=== PATIENT | female | born 1970 | race Caucasian/White ===

== ENCOUNTER 2024-02-10 21:01 | Emergency (ER) | payer MEDICARE, MEDICAID ==
[~2024-02-10] VITALS: Ht 170.2 cm; Wt 85.5 kg
[2024-02-10 21:21] VITALS: BP 163/77; PULSE 91; RESP 16; O2SAT 94
[2024-02-10] MEDS ORDERED: CEPH500C PO (23:21)
== END 2024-02-11 01:27 | disposition home or self-care (01) ==
LOC: ER 21:01
DX: L02.213 Cutaneous abscess of chest wall (principal); Z95.1 Presence of aortocoronary bypass graft; I12.0 Hypertensive chronic kidney disease with stage 5 chronic kidney disease or end stage renal disease; E11.22 Type 2 diabetes mellitus with diabetic chronic kidney disease; N18.6 End stage renal disease; T82.7XXA Infection and inflammatory reaction due to other cardiac and vascular devices, implants and grafts, initial encounter

== ENCOUNTER 2024-03-30 12:31 | Emergency (ER) | payer MEDICARE, MEDICAID ==
[~2024-03-30] VITALS: Ht 170.2 cm; Wt 88.5 kg
[~2024-03-30 12:31] MED LIST: CEPH500C PO
[2024-03-30] MEDS: MAALOX PLUS or MAALOX 30 ML PO ONE (14:37)
[2024-03-30] MEDS: LIDOCAINE VISCOUS 2% 15ML UD PO ONE (14:38)
[2024-03-30] MEDS: DONNATAL 5ml ORAL Elix (BELLADONNA ALK-PHENOBARB) PO ONE (14:41)
[2024-03-30 14:42] VITALS: BP 128/55; PULSE 73; RESP 18; TEMP 97.8; O2SAT 95
[2024-03-30] MEDS ORDERED: LIDO2SOL26 MT (15:10)
[2024-03-30] MEDS ORDERED: PANT40TA2 PO (15:10)
== END 2024-03-30 15:24 | disposition home or self-care (01) ==
LOC: ER 12:31
DX: R10.13 Epigastric pain (principal); I12.0 Hypertensive chronic kidney disease with stage 5 chronic kidney disease or end stage renal disease; E11.22 Type 2 diabetes mellitus with diabetic chronic kidney disease; N18.6 End stage renal disease; Z98.890 Other specified postprocedural states; Z79.899 Other long term (current) drug therapy

== ENCOUNTER 2024-04-01 00:45 | Emergency (ER) | payer MEDICARE, MEDICAID ==
[~2024-04-01] VITALS: Ht 170.2 cm; Wt 87.9 kg
[~2024-04-01 00:45] MED LIST changes: +LIDO2SOL26 MT; +PANT40TA2 PO
[2024-04-01 04:06] LABS: Basophils # (auto) 0 10 ^3/uL (0-0.2); Basophils % (auto) 0.2 % (0.0-2.0); Eosinophils # (auto) 0.1 10 ^3/uL (0-0.8); Eosinophils % (auto) 1.3 % (0.0-7.0); Hematocrit 36.5 % (36.0-46.0); Hemoglobin 12.1 g/dL (12.2-16.2); Lymphocytes # (auto) 0.9 10 ^3/uL (0.4-5.4); Lymphocytes % (auto) 8.8 % (10.0-50.0); Mean Corpuscular Hgb Conc. 33.1 g/dL (32.0-36.0); Mean Corpuscular Volume 84.5 fL (80.0-100.0); Monocytes # (auto) 0.5 10 ^3/uL (0-1.3); Monocytes % (auto) 4.9 % (0.0-12.0); Neutrophils # (auto) 8.2 10 ^3/uL (1.6-8.6); Neutrophils % (auto) 84.8 % (37.0-80.0); Nucleated Red Blood Cells % 0.1 %; Red Blood Cells 4.31 10^6/uL (4.0-5.20); Red Cell Distribution Width 14.2 % (11.8-14.3); White Blood Cell 9.7 10^3/uL (4.4-10.8)
[2024-04-01 04:22] LABS: Alanine Aminotransferase 19 U/L (7-40); Albumin 4.5 g/dL (3.2-4.8); Alkaline Phosphatase 174 U/L (46-116); Anion Gap 10 (5-15); Aspartate Aminotransferase 20 U/L (13-40); BUN/Creatinine Ratio 6.1 (10.0-20.0); Bilirubin, Total 0.5 mg/dL (0.2-1.0); Blood Urea Nitrogen 37 mg/dL (9-23); Calcium 10.4 mg/dL (8.7-10.4); Carbon Dioxide 30 mmol/L (20-30); Chloride 90 mmol/L (98-107); Glucose 333 mg/dL (74-106); Potassium 4.3 mmol/L (3.5-5.1); Sodium 130 mmol/L (136-145); Total Protein 8.3 g/dL (5.7-8.2)
[2024-04-01] MEDS ORDERED: CHL12OR MT (05:16)
[2024-04-01] MEDS ORDERED: DEX4T PO (05:16)
[2024-04-01] MEDS ORDERED: AMOX875T4 PO (05:16)
[2024-04-01 05:37] VITALS: BP 117/66; PULSE 76; RESP 16; TEMP 97.8; O2SAT 96
== END 2024-04-01 05:37 | disposition home or self-care (01) ==
LOC: ER 00:45
DX: J03.90 Acute tonsillitis, unspecified (principal); M54.2 Cervicalgia; E11.22 Type 2 diabetes mellitus with diabetic chronic kidney disease; I12.0 Hypertensive chronic kidney disease with stage 5 chronic kidney disease or end stage renal disease; N18.6 End stage renal disease
CPT/HCPCS: 36415; 70490; 71250; 80053; 82962; 83605; 83880; 84484; 85025; 87040

== ENCOUNTER 2024-10-22 09:15 | Emergency (ER) | payer MEDICARE, MEDICAID ==
[~2024-10-22] VITALS: Ht 170.2 cm; Wt 89.5 kg
[~2024-10-22 09:15] MED LIST changes: +AMOX875T4 PO; +CHL12OR MT; +DEX4T PO
--- NOTE | 2024-10-22 09:57 | ED.PDOC ---
History of Present Illness HPI Comments A 54 YEAR OLD FEMALE PRESENTS TO THE ED WITH COMPLAINT OF PICC LINE REPLACEMENT. PATIENT STATES SHE HAS A PICC LINE PLACED DUE TO A CHRONIC STERNAL WOUND INFECTION AND NOTES THAT HER PICC LINE ACCIDENTALLY CAME OUT YESTERDAY NIGHT. PATIENT REPORTS SHE WOULD LIKE TO HAVE ANOTHER PICC LINE PLACED TODAY TO CONTINUE HER IV ANTIBIOTICS. PATIENT DENIES FEVER, CHILLS, SHORTNESS OF BREATH, CHEST PAIN, ABDOMINAL PAIN, NAUSEA, VOMITING, HEADACHE, OR OTHER COMPLAINTS. NO OTHER SYMPTOMS OR MODIFYING FACTORS AT THIS TIME. PATIENT IS ALERT, ORIENTED X 4, AND HAS STEADY GAIT. Chief Complaint: Tube Replacement Time Seen by MD: 09:32 Primary Care Provider: FRIEDA Reviewed Notes: Nurses Notes, Medications, Allergies Allergies: Coded Allergies: NO KNOWN ALLERGIES (Unverified , 10/24/22) Home Meds Active Scripts Chlorhexidine Gluconate (Mouth (CHLORHEXIDINE ORAL RINSE) 473 Ml So, 15 ML MT Q12HR PRN for 10 Days, #473 ML Prov:NY PONCE S DO 04/01/24 Dexamethasone (Decadron) 4 Mg Tb, 8 MG PO DAILY for 9 Days, #18 TAB Prov:NY PONCE S DO 04/01/24 Amoxicillin & Pot Clavulanate (Amoxicillin/Potassium Cla) 875 Mg Tab, 1 TAB PO BID for 10 Days, #20 TAB Prov:NY PONCE S DO 04/01/24 Pantoprazole Sodium Sesquihydr (Protonix) 40 Mg Tab, 40 MG PO DAILY for 30 Days, #30 TAB 0 Refills Prov:JORJE MEYERS COLOR WORKER 03/30/24 Lidocaine HCl (Mouth-Throat) (Lidocaine HCl Viscous) 2 % Ashley, 10 ML MT TID for 30 Days, #1 BOTTLE 0 Refills Prov:JORJE MEYERS COLOR WORKER 03/30/24 Cephalexin Monohydrate (Cephalexin) 500 Mg Cap, 1 CAP PO QID for 7 Days, #28 CAP Prov:LESLEY QUINTANILLA PAC 02/10/24 Information Source: Patient Mode of Arrival: Ambulatory Severity: Mild Timing: Hours Duration: Since onset, Hours Prehospital treatment: None Medication Refill: For: Other (PICC LINE REPLACEMENT) Past Medical History PAST MEDICAL HISTORY: DM, ESRD, HTN Surgical History: CABG FREIGHT DISPATCHER History: No Pertinent FREIGHT DISPATCHER History Social History Smoker: Non-Smoker Alcohol: Denies ETOH Use Drugs: Denies Drug Use Lives In: Home Constitutional: denies: chills, diaphoresis, fatigue, fever, malaise, sweats, weakness, others EENTM: denies: blurred vision, double vision, ear bleeding, ear discharge, ear drainage, ear pain, ear ringing, eye pain, eye redness, hearing loss, mouth pain, mouth swelling, nasal discharge, nose bleeding, nose congestion, nose pain, photophobia, tearing, throat pain, throat swelling, voice changes, others Respiratory: denies: cough, hemoptysis, orthopnea, SOB at rest, shortness of breath, SOB with excertion, stridor, wheezing, others Cardiovascular: denies: chest pain, dizzy spells, diaphoresis, Dyspnea on exertion, edema, irregular heart beat, left arm pain, lightheadedness, palpitations, PND, syncope, others Gastrointestinal: denies: abdomen distended, abdominal pain, blood streaked bowels, constipated, diarrhea, dysphagia, difficulty swallowing, hematemesis, melena, nausea, poor appetite, poor fluid intake, rectal bleeding, rectal pain, vomiting, others Genitourinary: denies: abnormal vagina bleeding, burning, dyspareunia, dysuria, flank pain, frequency, hematuria, incontinence, pain, , vagina discharge, urgency, others Neurological: denies: dizziness, fainting, headache, left sided numbness, left sided weakness, numbness, paresthesia, pre-existing deficit, right sided numbness, right sided weakness, seizure, speech problems, tingling, tremors, weakness, others Musculoskeletal: denies: back pain, gout, joint pain, joint swelling, muscle pain, muscle stiffness, neck pain, others Integumetry: reports: others (PICC LINE REPLACEMENT); denies: bruises, change in color, change in hair/nails, dryness, laceration, lesions, lumps, rash, wounds Allergic/Immunocompromised: denies: Difficulty Healing, Frequent Infections, Hives, Itching, others Hematologic/Lymphatic: denies: anemia, blood clots, easy bleeding, easy bruising, swollen glands, others Endocrine: denies: excessive hunger, excessive sweating, excessive thirst, excessive urination, flushing, intolerance to cold, intolerance to heat, unexplained weight gain, unexplained weight loss, others Psychiatric: denies: anxiety, bipolar disorder, depression, hopeless, panic disorder, schizophrenia, sleepless, suicidal, others All Other Systems: Reviewed and Negative Physical Exam General Appearance: No Apparent Distress, Normal HEENT: Normal ENT Inspection, PERRL/EOMI, Pharynx Normal, TMs Normal Neck: Full Range of Motion, Non-Tender, Normal, Normal Inspection Respiratory: Chest Non-Tender, Lungs Clear, No Accessory Muscle Use, No Respiratory Distress, Normal Breath Sounds Cardiovascular: No Edema, No JVD, No Murmur, No Gallop, Normal Peripheral Pulses, Regular Rate/Rhythm Breast Exam: Deferred Gastrointestinal: No Organomegaly, Non Tender, No Pulsatile Mass, Normal Bowel Sounds, Soft Genitalia: Deferred Pelvic: Deferred Rectal: Deferred Extremities: No calf tenderness, Normal capillary refill, Normal inspection, Normal range of motion, Non-tender, No pedal edema, Other (NO REDNESS AND SWELLING ON RIGHT ARM, OLD PICC LINE REGION. ) Musculoskeletal : Apperance: Normal Neurologic: Alert, automotive dismantler II-XII nml as Tested, No Motor Deficits, Normal Affect, Normal Mood, No Sensory Deficits Cerebellar Function: Normal Reflexes: Normal Skin: Dry, Normal Color, Warm Peripheral Pulses: 2+ carotid (R), 2+ carotid (L) Lymphatic: No Adenopathy Was a procedure done? Was a procedure done?: No Differential Dx Considerations may include: PICC LINE REPLACEMENT, WOUND CHECK X-Ray, Labs, Meds, VS Vital Signs Date Time Temp Pulse Resp B/P (MAP) Pulse Ox O2 Delivery O2 Flow Rate FiO2 10/22/24 09:59 93 17 100 Room Air 10/22/24 09:59 97.3 93 17 164/47 (86) 100 97.3 10/22/24 09:26 97.3 93 17 164/47 (86) 100 Lab Test 10/22/24 10:20 Range/Units White Blood Count 4.7 4.4-10.8 10^3/uL Red Blood Count 3.85 L 4.0-5.20 10^6/uL Hemoglobin 10.6 L 12.2-16.2 g/dL Hematocrit 32.4 L 36.0-46.0 % Mean Corpuscular Volume 84.3 80.0-100.0 fL Mean Corpuscular Hemoglobin 27.5 L 28.0-32.0 pg Mean Corpuscular Hemoglobin Concent 32.6 32.0-36.0 g/dL Red Cell Distribution Width 16.7 H 11.8-14.3 % Platelet Count 229 140-450 10^3/uL Mean Platelet Volume 8.6 6.9-10.8 fL Neutrophils (%) (Auto) 70.3 37.0-80.0 % Lymphocytes (%) (Auto) 15.0 10.0-50.0 % Monocytes (%) (Auto) 10.9 0.0-12.0 % Eosinophils (%) (Auto) 3.6 0.0-7.0 % Basophils (%) (Auto) 0.2 0.0-2.0 % Neutrophils # (Auto) 3.3 1.6-8.6 10 ^3/uL Lymphocytes # (Auto) 0.7 0.4-5.4 10 ^3/uL Monocytes # (Auto) 0.5 0-1.3 10 ^3/uL Eosinophils # (Auto) 0.2 0-0.8 10 ^3/uL Basophils # (Auto) 0 0-0.2 10 ^3/uL Nucleated Red Blood Cells 0.2 % Prothrombin Time 11.1 9.3-11.8 sec Prothrombin Time INR 1.05 0.9-1.15 CHEST RADIOGRAPH Indication: PICC LINE PULL OUT Technique: Single frontal view of the chest was obtained COMPARISON: None FINDINGS: Lines and Tubes: None Lungs: Clear Pleura: No effusion. No pneumothorax. Cardiomediastinal contours: Unremarkable Bones: Unremarkable IMPRESSION: No acute disease. ATED BY: RITESH VELASCO MD DICTATED DATE/TIME: 10/22/24 1021 SIGNED BY: RITESH VELASCO MD SIGNED DATE/TIME: 10/22/24 1021 CC: X-Ray, Labs, Meds, VS Comment LABS ORDERED: CBC, PT/INR REVIEWED AND INTERPRETED RESULTS: NORMAL PICC LINE WAS SUCCESSFULLY PLACED. SEE PICC LINE NURSE'S NOTES. Images Reviewed?: Images reviewed and evaluated by me Time of 1ST Reevaluation: 15:05 Reevaluation 1ST: Improved Patient Education/Counseling: Diagnosis, Treatment, Need For Follow Up Family Education/Counseling: Diagnosis, Treatment, Need For Follow Up Medical Screening: No EMC Exist At This Time Departure 1 Departure Time of Disposition: 15:05 Impression: Primary Impression: Status post PICC central line placement Disposition: HOME / SELF CARE / HOMELESS Condition: Stable Additional Instructions: FOLLOW-UP WITH PCP IN 1 TO 2 DAYS. RETURN TO ED FOR ANY NEW OR WORSENING SYMPTOMS. Discharged With: Self Critical Care Note Critical Care Time?: No Stability Stability form required: No I personally scribed for DARLIN CRUZ ([email or web address]) on 10/22/24 at 09:57. Electronically submitted by Brent Coyle ([facility] [facility]). I personally scribed for DARLIN CRUZ ([email or web address]) on 10/22/24 at 11:06. Electronically submitted by Brent Coyle ([facility]). I personally scribed for DARLIN CRUZ ([email or web address]) on 10/22/24 at 14:36. Electronically submitted by Brent Coyle ([facility]). DARLIN CRUZ Oct 22, 2024 09:57
[2024-10-22 09:59] VITALS: BP 164/47; PULSE 93; RESP 17; TEMP 97.3; O2SAT 100
--- NOTE | 2024-10-22 10:23 | DVH ---
CHEST RADIOGRAPH Indication: PICC LINE PULL OUT Technique: Single frontal view of the chest was obtained COMPARISON: None FINDINGS: Lines and Tubes: None Lungs: Clear Pleura: No effusion. No pneumothorax. Cardiomediastinal contours: Unremarkable Bones: Unremarkable IMPRESSION: No acute disease.
[2024-10-22 11:40] LABS: Basophils # (auto) 0 10 ^3/uL (0-0.2); Basophils % (auto) 0.2 % (0.0-2.0); Eosinophils # (auto) 0.2 10 ^3/uL (0-0.8); Eosinophils % (auto) 3.6 % (0.0-7.0); Hematocrit 32.4 % (36.0-46.0); Hemoglobin 10.6 g/dL (12.2-16.2); Lymphocytes # (auto) 0.7 10 ^3/uL (0.4-5.4); Mean Corpuscular Hemoglobin 27.5 pg (28.0-32.0); Mean Corpuscular Hgb Conc. 32.6 g/dL (32.0-36.0); Mean Corpuscular Volume 84.3 fL (80.0-100.0); Monocytes # (auto) 0.5 10 ^3/uL (0-1.3); Monocytes % (auto) 10.9 % (0.0-12.0); Neutrophils # (auto) 3.3 10 ^3/uL (1.6-8.6); Neutrophils % (auto) 70.3 % (37.0-80.0); Nucleated Red Blood Cells % 0.2 %; Platelet Count (auto) 229 10^3/uL (140-450); Red Blood Cells 3.85 10^6/uL (4.0-5.20); Red Cell Distribution Width 16.7 % (11.8-14.3); White Blood Cell 4.7 10^3/uL (4.4-10.8)
[2024-10-22 11:53] LABS: INR 1.05 (0.9-1.15); Prothrombin Time 11.1 sec (9.3-11.8)
[2024-10-22] MEDS: LIDOCAINE 1% (LOCAL ANESTH.) PF 5ml SDV ID ONE (15:34)
[2024-10-22] MEDS ORDERED: SODIUM CHLOR 0.9% PF (SALINE LOCK) 10ML VIAL/SYR IV SCH (22:00)
== END 2024-10-22 15:15 | disposition home or self-care (01) ==
LOC: ER 09:15
DX: T81.41XA Infection following a procedure, superficial incisional surgical site, initial encounter (principal); E11.22 Type 2 diabetes mellitus with diabetic chronic kidney disease; I12.0 Hypertensive chronic kidney disease with stage 5 chronic kidney disease or end stage renal disease; N18.6 End stage renal disease; Z45.2 Encounter for adjustment and management of vascular access device; Z95.1 Presence of aortocoronary bypass graft
CPT/HCPCS: 36415; 36569; 71045; 76937; 85025; 85610; 99285; C1751; J7050